=== PATIENT | female | born 1940 | race Hispanic/Latino ===

== ENCOUNTER 2025-04-12 12:32 | Emergency (ER) | payer BC ==
[~2025-04-12] VITALS: Ht 147.3 cm; Wt 67.1 kg
--- NOTE | 2025-04-12 12:43 | ERN ---
ED Note History of Present Illness Stated Complaint: AMS, BOWEL OBSTRUCTION, SENT FROM PCP Chief Complaint: Altered Mental Status Time Seen by MD: 12:34 Dictation: PATIENT IS A 85-YEAR-OLD FEMALE COMING IN WITH HER DAUGHTER WITH COMPLAINTS OF DECREASED APPETITE FEVER CHILLS AND GENERALIZED BODY WEAKNESS FOR SEVERAL DAYS. SHE WAS SEEN AT [facility] TWO DAYS AGO AND HAD LABS DONE TO INCLUDE A CT ABDOMEN AND PELVIS WITH CONTRAST AND WAS TOLD THAT THERE WAS NO BOWEL OBSTRUCTION IN THE NO ACUTE FINDINGS. THE PAPERWORK FROM [facility] STATES PATIENT HAS A LARGE BOWEL OBSTRUCTION. PATIENT IS FEBRILE IN TRIAGE APPEARS WEAK AND DEBILITATED. NEUROLOGICALLY SHE IS INTACT PER DAUGHTER. Allergies: Coded Allergies: No Known Drug Allergies (Unverified Allergy, Unknown, 04/12/25) Home Meds Active Scripts Nitrofurantoin Macrocrystal (Macrodantin) 100 Mg Cap, 1 CAP PO BID for 7 Days, #14 CAP 0 Refills Prov:SHAHABONEAL PARAMEDIC INSTRUCTOR 04/12/25 Past Medical History Past Medical History: Diabetes-Type II, High Cholesterol, Hypertension Surgical History: Appendectomy History: Not Applicable RN Note Reviewed/Agreed w/PFSH: Yes Review of System Dictation CONSTITUTIONAL: NEGATIVE EXCEPT FOR HPI FEVER CHILLS GENERALIZED BODY WEAKNESS DECREASED APPETITE HEAD/FACE: NEGATIVE EXCEPT FOR HPI EENT: NEGATIVE EXCEPT FOR HPI RESPIRATORY: NEGATIVE EXCEPT FOR HPI GASTROINTESTINAL/ABDOMINAL: NEGATIVE EXCEPT FOR HPI GENITOURINARY: NEGATIVE EXCEPT FOR HPI MUSCULOSKELETAL: NEGATIVE EXCEPT FOR HPI INTEGUMENTARY: NEGATIVE EXCEPT FOR HPI NEUROLOGICAL/PSYCH: NEGATIVE EXCEPT FOR HPI HEMATOLOGIC/LYMPHATIC: NEGATIVE EXCEPT FOR HPI ALL SYSTEMS NEGATIVE, EXCEPT NOTED ABOVE. 13 POINT REVIEW OF SYSTEMS ASSESSED AND ALL NEGATIVE EXCEPT FOR ABOVE. Initial Vital Sign VS Vital Signs Date Time Temp Pulse Resp B/P (MAP) Pulse Ox O2 Delivery O2 Flow Rate FiO2 04/12/25 12:34 98.2 67 18 110/52 100 Room Air 04/12/25 13:52 0 21 Physical Exam Dictation VITAL SIGNS REVIEWED GENERAL APPEARANCE: ALERT, ORIENTED X 3, VERY WEAK AND DEBILITATED. NO SPECIFIC FINDINGS HEAD AND FACE: NON-TRAUMATIC. EYES: PERRL, PINK CONJUNCTIVAS, EYELID NO TRAUMA, ANTERIOR CHAMBER WITH ARCUS SENILIS. EARS: PINNAS INTACT AND NO SIGNS OF TRAUMA OR ERYTHEMA EAR CANALS CLEAR AND NO DISCHARGE TM NO ERYTHEMA NOSE: NO DISCHARGE, NO BLEEDING. OROPHARYNX: MOUTH NORMAL, TONGUE PINK, PHARYNX CLEAR,NO ERYTHEMA, TONSILS NO EXUDATES, NO ABSCESSES NOTED, MUCOUS MEMBRANE MOIST NECK: SUPPLE, NON-TENDER, NO THYROMEGALY, NO MASSES, NO JVD, NO BRUITS BREAST:DEFERRED CHEST:NO TENDERNESS, NO CREPITUS, NO PARADOXICAL MOVEMENT, NO RETRACTIONS LUNGS:CLEAR, WELL-VENTILATED, SYMMETRIC, NO RALES, NO WHEEZING, NO RHONCHI, NO STRIDOR, GOOD BREATH SOUNDS BILATERALLY HEART: REGULAR RATE, REGULAR RHYTHM, NO MURMUR, NO GALLOPS VASCULAR: NO PERIPHERAL EDEMA, ABDOMEN: SOFT, POSITIVE BOWEL SOUNDS, NONDISTENDED, NO GUARDING, NONTENDER, NO REBOUND, NO MASSES NO HEPATOMEGALY, NO SPLENOMEGALY, NO MARSHALL'S SIGN, NO HERNIAS. RECTAL: DEFERRED GENITAL: DEFERRED NEUROLOGICAL: NORMAL SPEECH, MOTOR FUNCTION INTACT, SENSORY FUNCTION INTACT BASELINE PER DAUGHTER MUSCULOSKELETAL: NECK NONTENDER, FULL RANGE OF MOTION, BACK NONTENDER, FULL RANGE OF MOTION, EXTREMITIES: NONTENDER, FULL RANGE OF MOTION SKIN: COLOR PINK, DRY, NO TURGOR, NO RASH, NO LACERATIONS, NO ABRASIONS, NO CONTUSIONS. LYMPHATIC: DEFERRED Results (Laboratory/Radiology) Laboratory/Radiology Laboratory Tests Test 04/12/25 12:54 04/12/25 13:21 04/12/25 13:36 White Blood Count 3.3 K/uL (4.8-10.8) L Red Blood Count 3.44 MIL/uL (4.00-5.50) L Hemoglobin 10.4 g/dL (12.0-16.0) L Hematocrit 31.4 % (36-48) L Mean Corpuscular Volume 91.3 fL (79-99) Mean Corpuscular Hemoglobin 30.2 pg (27.0-33.0) Mean Corpuscular Hemoglobin Concent 33.1 g/dL (32.0-36.0) Red Cell Distribution Width 12.3 % (11.0-15.5) Platelet Count 189 K/uL (130-400) Mean Platelet Volume 10.2 fL (7.5-10.5) Immature Granulocyte % (Auto) 0.3 % (0-1) Neutrophils (%) (Auto) 56.4 % (40.0-77.0) Lymphocytes (%) (Auto) 30.6 % (21.0-51.0) Monocytes (%) (Auto) 9.4 % (3.0-13.0) Eosinophils (%) (Auto) 2.7 % (0.0-8.0) Basophils (%) (Auto) 0.6 % (0.0-5.0) Neutrophils # (Auto) 1.9 K/uL (1.8-7.7) Lymphocytes # (Auto) 1.0 K/uL (1.0-4.8) Monocytes # (Auto) 0.3 K/uL (0.1-1.0) Eosinophils # (Auto) 0.09 K/uL (0.00-0.70) Basophils # (Auto) 0.02 K/uL (0.00-0.20) Absolute Immature Granulocyte (auto 0.01 K/uL (0-1) Nucleated Red Blood Cells 0.0 % (0.0-0.19) Sodium Level 131 mmol/L (136-145) L Potassium Level 4.3 mmol/L (3.5-5.1) Chloride Level 96 mmol/L (101-111) L Carbon Dioxide Level 28 mmol/L (21-32) Blood Urea Nitrogen 11 mg/dL (7-18) Creatinine 1.0 mg/dL (0.5-1.0) Glomerular Filtration Rate Calc 56 mL/min (>90) Random Glucose 107 mg/dL (70-105) H Lactic Acid Level 1.1 mmol/L (0.8-2.5) Total Calcium 9.2 mg/dL (8.5-10.1) Troponin I High Sensitivity 7 ng/L (4-50) Urine Color LIGHT-BROWN (YELLOW) Urine Appearance CLOUDY (CLEAR) H Urine pH 8.5 (5.0-8.0) H Urine Specific [place] 1.015 (1.001-1.031) Urine Protein 10 mg/dL (NEGATIVE) H Urine Glucose (UA) NEGATIVE mg/dL (NEGATIVE) Urine Ketones NEGATIVE mg/dL (NEGATIVE) Urine Occult Blood LARGE (NEGATIVE) H Urine Nitrate NEGATIVE (NEGATIVE) Urine Bilirubin NEGATIVE mg/dL (NEGATIVE) Urine Urobilinogen 0.2 mg/dL (0.2-1.0) Urine Leukocyte Esterase 25 Esteban/uL (NEGATIVE) H Urine RBC TNTC /HPF (0-1) H Urine WBC 11-25 /HPF (0-1) H Urine Bacteria None /HPF (None Seen) Influenza Type A Antigen Negative For Type A Influenza Type B Antigen Negative For Type B SARS-CoV-2 Antigen (Rapid) PRESUMPTIVE NEGATIVE REASON: SOB/COUGH ORDERING PHYSICIAN: ONEAL GUDINO PARAMEDIC INSTRUCTOR PROCEDURE: CXR1VW - CHEST 1VW CHEST 1VW REASON: SOB/COUGH COMPARISON: None. FINDINGS: Single view of the chest was obtained. Lungs are clear. Heart size is normal.. There is uncoiling and atherosclerotic change of thoracic aorta. There is no pulmonary vascular congestion. Mediastinum and bony thorax appear unremarkable. IMPRESSION: 1. Normal single view chest x-ray. CT ABDOMEN/PELVIS W/CONTRAST HISTORY: DECREASED APPETITE WITH NAUSEA 3-4 DAYS. RULE OUT SBO. COMPARISON: None. TECHNIQUE: Sequential axial images through abdomen and pelvis were performed. Patient was given 75 mL of Omnipaque IV. Coronal and sagittal reformats were obtained. FINDINGS: Lung bases: Clear. Liver: Normal size and enhancement throughout. There is a cyst seen near the gallbladder fossa in the right lobe of the liver. Portal vein: Patent. Gallbladder: S/P cholecystectomy. Spleen: Normal. Kidneys: Normal size and shape. The right kidney and lower pole is a nonobstructing calculus measuring 0.5 cm. There is associated small exophytic cyst. Adrenal glands: Normal Pancreas: Unremarkable. Stomach and small bowel: No inflammation or distention noted. Colon: Unremarkable. Appendix: Normal. Bladder: Partially distended and unremarkable. Reproductive system: Uterus and adnexa are normal for age. Abdominal aorta: Normal caliber. Skeletal: There is a grade 1 compression fracture of L2 to vertebral body. IMPRESSION: Grade 2 compression fracture of L2 vertebral body which is amenable for vertebral body augmentation no acute process seen a CT of the abdomen and pelvis without intravenous contrast. Labs Reviewed?: Yes ED Course ED Course Orders Procedure Category Date Status Time Covid19 (Sars Antigen LAB 04/12/25 Complete Rapid) 12:38 Cbc With Differential LAB 04/12/25 Complete 12:38 Blood Cult ОЛЕГ 04/12/25 In Process 12:38 Urinalysis Profile LAB 04/12/25 Complete 12:38 Troponin I High LAB 04/12/25 Complete Sensitivity 12:38 Lactic Acid LAB 04/12/25 Complete 12:38 Basic Metabolic Panel LAB 04/12/25 Complete 12:38 Influenza Type A & B, LAB 04/12/25 Complete Rapid 12:38 0.9%Nacl 1000ml (Ns PHA 04/12/25 Complete 1000ml) 13:00 Chest 1vw RAD 04/12/25 Resulted 12:40 Culture Urine ОЛЕГ 04/12/25 In Process 13:41 Ct Abdomen/Pelvis CT 04/12/25 Resulted W/Contrast 13:41 Iohexol (Omnipaque) PHA 04/12/25 Complete 16:13 Current Medications Medications (Trade) Dose Ordered Sig/Benja Route PRN Reason Start Time Stop Time Status Last Admin Dose Admin Iohexol (Omnipaque) 75 ml STK-MED ONCE IV 04/12/25 16:13 04/12/25 16:13 DC Sodium Chloride 1,000 ml @ 0 mls/hr ONCE ONCE IV 04/12/25 13:00 04/12/25 13:01 DC 04/12/25 13:39 Vital Signs Date Time Temp Pulse Resp B/P (MAP) Pulse Ox O2 Delivery O2 Flow Rate FiO2 04/12/25 17:45 98.2 82 20 124/75 99 Room Air* 0 21 04/12/25 16:41 98.4 85 20 125/68 100 Room Air* 0 04/12/25 15:21 98.4 64 16 116/65 100 Room Air* 0 21 04/12/25 13:52 98.4 62 15 111/56 99 Room Air* 0 04/12/25 12:34 98.2 67 18 110/52 100 Room Air 1720/DISCUSSED RESULTS WITH PATIENT AND DAUGHTER. THERE THEY ARE AWARE THERE IS ONLY A SMALL URINARY TRACT INFECTION ONLY AND MILD DEHYDRATION PATIENT WILL BE GIVEN MACRODANTIN REHYDRATION INSTRUCTIONS TOLD SEE HER DOCTOR Medical Decision Making MDM MDM: DIFFERENTIAL DIAGNOSIS: URINARY TRACT INFECTION/SMALL-BOWEL OBSTRUCTIO/DIVERTICULITIS/URINARY TRACT INFECTION/DEHYDRATION/HERNIA RATIONALE: TESTS CONSIDERED AND ORDERED SECONDARY TO SHARED DECISION MAKING INCLUDE: PREVIOUS OUTSIDE RECORDS REVIEWED: OLD ER VISITS. RISK OF COMPLICATION AND/OR MORBIDITY OR MORTALITY OF PATIENT MANAGEMENT: NONE MEDICATIONS-PER MEDICATION RECONCILIATION NEED FOR HOSPITALIZATION: PATIENT DOES NOT MEET CRITERIA FOR HOSPITALIZATION. NONE NEED FOR EMERGENCY MAJOR/MINOR SURGERY: NO THERE ARE NO SOCIAL CONCERNS WITH THIS PATIENT. PRESCRIPTION DRUG MANAGEMENT MACRODANTIN PRESCRIPTIONS WILL INCLUDE SYMPTOMATIC CARE PATIENT'S PRIOR EXTERNAL MEDICAL RECORDS FROM OTHER ER VISITS WERE REVIEWED BY ME INDICATED. PRIOR TESTING AND RESULTS FROM PREVIOUS VISITS WERE REVIEWED. PRIOR TESTS WERE TAKEN INTO ACCOUNT WITH MEDICAL DECISION MAKING AND RESOURCE UTILIZATION, INDEPENDENT HISTORIAN/HISTORIANS WERE USED TO OBTAIN COMPLETE MEDICAL HISTORY. I INDEPENDENTLY INTERPRETED THE TEST THAT WERE PERFORMED, RESULTS WERE REVIEWED BY ME AND CONSIDERED FINDINGS ON RADIOLOGY IF ORDERED. MEDICAL MANAGEMENT AND EXAMINATION INTERPRETATION DISCUSSIONS WERE HAD BY ME WITH OTHER QUALIFIED HEALTHCARE PROFESSIONALS INDICATED FOR THE PATIENT'S CARE. DX & DISP Disposition: Discharge Departure Impression: Primary Impression: Acute UTI Additional Impressions: Dehydration, Hyponatremia, Hypochloremia Condition: Stable Scripts Nitrofurantoin Macrocrystal (Macrodantin) 100 Mg Cap 1 CAP PO BID for 7 Days, #14 CAP 0 Refills Prov: ONEAL GUDINO PARAMEDIC INSTRUCTOR 04/12/25 Additional Instructions: FOLLOW-UP WITH PRIMARY CARE PROVIDER IN 1 TO 2 DAYS. TAKE MEDICATIONS DIRECTED HERE IN THE EMERGENCY ROOM. OKAY TO CONTINUE HOME MEDICATIONS UNLESS OTHERWISE DISCUSSED DURING YOUR VISIT IN THE EMERGENCY ROOM TODAY. RETURN TO YOUR NEAREST EMERGENCY ROOM IF SYMPTOMS WORSEN OR IF THERE IS NO IMPROVEMENT. CALL 911 IF YOU NEED IMMEDIATE ASSISTANCE. TAKE TYLENOL OR MOTRIN OVER-THE- COUNTER NEEDED AND IF NO CONTRAINDICATIONS ARE PRESENT. INCREASE ORAL HYDRATION. A WOUND CULTURE OR URINE CULTURE WAS ORDERED HERE IN THE EMERGENCY ROOM DEPARTMENT PLEASE FOLLOW-UP WITH PRIMARY CARE PROVIDER AND ADVISE THEM TO GET REPEAT PORTS FROM OUR FACILITY. IF YOU HAD ANY JOSE WRAP/SPLINTS THAT WERE APPLIED HERE, PLEASE DO NOT REMOVE THEM UNTIL YOU SEE YOUR PRIMARY CARE OR SPECIALTY. TAKE MACRODANTIN DIRECTED UNTIL GONE. INCREASE WATER INTAKE. SEE YOUR PRIMARY CARE DOCTOR FOR FOLLOW UP AND MANAGEMENT. Referrals: SELF,REFERRAL (PCP) Time of Disposition: 17:25 I have reviewed the case, and I agree with, Diagnosis and Plan ONEAL GUDINO NP Apr 12, 2025 12:43 CRISTO NAVARRO DO Apr 12, 2025 18:18
--- NOTE | 2025-04-12 13:15 | NUR ---
PATIENT CARE ASSUMED AT THIS TIME.
[2025-04-12 13:19] LABS: IMMATURE GRANULOCYTE ABSOLUTE 0.01 K/uL (0-1); NUCLEATED RED BLOOD CELLS 0.0 % (0.0-0.19); PLATELET COUNT (AUTO) 189 K/uL (130-400); RED BLOOD CELL COUNT(AUTO) 3.44 MIL/uL (4.00-5.50); RED CELL DISTRIBUTION WIDTH 12.3 % (11.0-15.5); WHITE BLOOD COUNT (AUTO) 3.3 K/uL (4.8-10.8)
[2025-04-12 13:31] LABS: CREATININE 1.0 mg/dL (0.5-1.0); GLOMERULAR FILTR. RATE CALC 56.0 mL/min (>90); GLUCOSE,RANDOM 107.0 mg/dL (70-105); SODIUM SERUM 131.0 mmol/L (136-145); UREA NITROGEN, BLOOD 11.0 mg/dL (7-18)
[2025-04-12 13:31] LABS: APPEARANCE,URINE CLOUDY (CLEAR); GLUCOSE, URINE (UA) NEGATIVE (NEGATIVE); LEUKOCYTE ESTERASE ,URINE 25 Leu/uL (NEGATIVE); NITRATE,URINE NEGATIVE (NEGATIVE); OCCULT BLOOD,URINE LARGE (NEGATIVE)
[2025-04-12 13:35] LABS: ADD UA MICROSCOPIC YES
[2025-04-12] MEDS: 0.9%NACL 1000ML 1,000 ML IV ONE (13:39)
[2025-04-12 14:02] LABS: COVID19 (SARS ANTIGEN RAPID) PRESUMPTIVE NEGATIVE (NEGATIVE); INFLUENZA TYPE A Negative For Type A (NEGATIVE); INFLUENZA TYPE B Negative For Type B (NEGATIVE)
--- NOTE | 2025-04-12 14:05 | NUR ---
CT CONTRAST CONSENT AND RISK EXPLAINED TO PATIENT'S DAUGHTER. DAUGHTER VERBALIZED UNDERSTANDING AND CONSENT AND SIGNED CONSENT FORM. FORM PLACED IN PATIENT CHART.
--- NOTE | 2025-04-12 14:15 | HMCIMG ---
CHEST 1VW REASON: SOB/COUGH COMPARISON: None. FINDINGS: Single view of the chest was obtained. Lungs are clear. Heart size is normal.. There is uncoiling and atherosclerotic change of thoracic aorta. There is no pulmonary vascular congestion. Mediastinum and bony thorax appear unremarkable. IMPRESSION: 1. Normal single view chest x-ray.
[2025-04-12] MEDS ORDERED: IOHEXOL-350 75 ML VIAL IV ONE (16:13)
--- NOTE | 2025-04-12 16:20 | NUR ---
PATIENT TRANSPORTED TO CT BY ED RN.
--- NOTE | 2025-04-12 16:40 | NUR ---
PATIENT RETURNED FROM CT. DAUGHTER AT BEDSIDE.
--- NOTE | 2025-04-12 16:56 | HMCIMG ---
CT ABDOMEN/PELVIS W/CONTRAST HISTORY: DECREASED APPETITE WITH NAUSEA 3-4 DAYS. RULE OUT SBO. COMPARISON: None. TECHNIQUE: Sequential axial images through abdomen and pelvis were performed. Patient was given 75 mL of Omnipaque IV. Coronal and sagittal reformats were obtained. FINDINGS: Lung bases: Clear. Liver: Normal size and enhancement throughout. There is a cyst seen near the gallbladder fossa in the right lobe of the liver. Portal vein: Patent. Gallbladder: S/P cholecystectomy. Spleen: Normal. Kidneys: Normal size and shape. The right kidney and lower pole is a nonobstructing calculus measuring 0.5 cm. There is associated small exophytic cyst. Adrenal glands: Normal Pancreas: Unremarkable. Stomach and small bowel: No inflammation or distention noted. Colon: Unremarkable. Appendix: Normal. Bladder: Partially distended and unremarkable. Reproductive system: Uterus and adnexa are normal for age. Abdominal aorta: Normal caliber. Skeletal: There is a grade 1 compression fracture of L2 to vertebral body. IMPRESSION: Grade 2 compression fracture of L2 vertebral body which is amenable for vertebral body augmentation no acute process seen a CT of the abdomen and pelvis without intravenous contrast.
[2025-04-12] MEDS ORDERED: NITR-166 PO (17:26)
[2025-04-12 17:45] VITALS: BP 124/75; PULSE 82; RESP 20; TEMP 98.2; O2SAT 99
== END 2025-04-12 18:16 | disposition home or self-care (01) ==
LOC: EDH 12:32
DX: N39.0 Urinary tract infection, site not specified (principal); E86.0 Dehydration; E87.1 Hypo-osmolality and hyponatremia; E78.00 Pure hypercholesterolemia, unspecified; E11.9 Type 2 diabetes mellitus without complications; E87.8 Other disorders of electrolyte and fluid balance, not elsewhere classified; I10 Essential (primary) hypertension; Z20.822 Contact with and (suspected) exposure to COVID-19; Z79.899 Other long term (current) drug therapy; Z90.49 Acquired absence of other specified parts of digestive tract
CPT/HCPCS: 99284; 74177; 96360; 71045; 87426; 84484; 80048; 85025; 87040 ×2; 87086; 87804 ×2; 83605; 81001; 36415; J7030; Q9967